=== PATIENT | female | born 1975 | race Caucasian/White ===

== ENCOUNTER → 2021-04-13 | Outpatient (CLI) | payer OTHER | LOC: MC.RAD 03-02 10:45 | DX: Z12.31 Encounter for screening mammogram for malignant neoplasm of breast (principal); Z98.82 Breast implant status ==

== ENCOUNTER 2023-03-30 10:15 | Emergency (ER) | payer OTHER ==
[~2023-03-30] VITALS: Ht 160 cm; Wt 54.5 kg
[2023-03-30 10:20] VITALS: TEMP 97.8
[2023-03-30 11:48] LABS: BASO % 0.5 % (0.0-2.0); EOS % 0.7 % (0.0-4.0); GRAN # 3.9 K/mm3 (1.4-6.5); GRAN % 63.4 % (42.2-75.2); HEMOGLOBIN 13.6 g/dl (12.5-16.0); LYMPH # 1.7 K/mm3 (1.2-3.4); LYMPH % 28.6 % (20.0-51.0); MEAN CELL VOLUME 94 fl (80.0-100.0); MEAN CORPUSCULAR HEMOGLOBIN 31 pg (27-31); MEAN CORPUSCULAR HGB CONC 33 g/dl (33.0-37.0); MEAN PLATELET VOLUME 9.9 fl (7.4-10.4); MONO # 0.4 K/mm3 (0.1-0.6); MONO % 6.6 % (1.7-9.3); PLATELET COUNT 188 K/mm3 (130-400); RED BLOOD COUNT 4.38 M/mm3 (4.10-5.30); REDCELL DISTRIBUTION WIDTH-CV 12.9 % (11.5-14.5)
[2023-03-30 12:22] LABS: BILIRUBIN,TOTAL 0.9 mg/dL (0.2-1.2); C-REACTIVE PROTEIN 0.03 mg/dL (0.00-0.50); CREATININE, serum 0.87 mg/dL (0.57-1.11); POTASSIUM 3.8 mmol/L (3.5-4.5); TOTAL PROTEIN 6.7 gm/dL (6.2-8.1)
[2023-03-30] MEDS ORDERED: OCUFLOX OPHTH DR5 ML OD (14:03)
[2023-03-30] MEDS ORDERED: NORCO 325 MG-51 TAB PO (14:12)
[2023-03-30 14:26] VITALS: BP 127/76; PULSE 82
== END 2023-03-30 14:29 | disposition home or self-care (01) ==
LOC: COL.ER 10:15
PROVIDERS: Nurse Practitioner
DX: H16.001 Unspecified corneal ulcer, right eye (principal); R51.9 Headache, unspecified
CPT/HCPCS: J1790; J7030

== ENCOUNTER → 2023-04-21 | Outpatient (CLI) | payer OTHER ==
[~2023-04-21] MED LIST: NORCO 325 MG-51 TAB PO; OCUFLOX OPHTH DR5 ML OD
== END ==
LOC: MC.RAD 12:57
DX: R92.0 Mammographic microcalcification found on diagnostic imaging of breast (principal)